=== PATIENT | female | born 1955 | race American Indian/Alaskan Native ===

== ENCOUNTER 2016-05-31 19:17 | Emergency (ER) | payer SELFPAY ==
[2016-05-31] MEDS ORDERED: TYLENOL ONE (19:58)
[2016-05-31] MEDS ORDERED: CATAPRES ONE (19:59)
[2016-05-31] MEDS ORDERED: TYLENOL PO ONE (20:03)
[2016-05-31] MEDS ORDERED: CATAPRES PO ONE (20:03)
--- NOTE | 2016-06-01 00:10 | Emergency Department Report ---
ED ENT HPI - General Chief complaint: Dental/Oral Stated complaint: TOOTH PAIN/SWELLING,JURADO Time Seen by Provider: 06/01/16 00:08 Source: patient Mode of arrival: Ambulatory Limitations: No Limitations - History of Present Illness Initial comments: 60-year-old female presents to emergency room with toothache. Patient has history of chronic tooth disease and multiple missing teeth. Significant complaining of worsening of her right lower 1st premolar tooth which is partially broken for many years now causing her to pain and swelling of her gum area. Patient denies any fever or difficulty swallowing. MD complaint: tooth pain -: Gradual, year(s) (worst today) Severity: moderate Severity scale (0 -10): 4 Quality: aching, dull Consistency: constant Improves with: none Worsens with: other (chewing) Context- Dental: history of dental caries, poor dental care Associated Symptoms: gum swelling (right lower premolar). denies: fever, cough - Related Data Previous Rx's Medication Instructions Recorded Last Taken Type Amoxicillin 500 mg PO TID #30 tab 06/01/16 Unknown Rx Diclofenac Sodium 75 mg PO BID #20 tablet. 06/01/16 Unknown Rx traMADol [Ultram] 50 mg PO Q6HR PRN #15 tablet 06/01/16 Unknown Rx Allergies Allergy/AdvReac Type Severity Reaction Status Date / Time codeine Allergy Itching Verified 05/31/16 19:54 ED Dental HPI - General Chief complaint: Dental/Oral Stated complaint: TOOTH PAIN/SWELLING,JURADO Time Seen by Provider: 06/01/16 00:08 Source: patient Mode of arrival: Ambulatory Limitations: No Limitations - Related Data Previous Rx's Medication Instructions Recorded Last Taken Type Amoxicillin 500 mg PO TID #30 tab 06/01/16 Unknown Rx Diclofenac Sodium 75 mg PO BID #20 tablet. 06/01/16 Unknown Rx traMADol [Ultram] 50 mg PO Q6HR PRN #15 tablet 06/01/16 Unknown Rx Allergies Allergy/AdvReac Type Severity Reaction Status Date / Time codeine Allergy Itching Verified 05/31/16 19:54 ED Review of Systems ROS: Stated complaint: TOOTH PAIN/SWELLING,JURADO Other details as noted in HPI Comment: All other systems reviewed and negative Constitutional: denies: chills, fever Eyes: denies: eye pain, eye discharge, vision change ENT: dental pain. denies: ear pain, throat pain Respiratory: denies: cough, shortness of breath, wheezing Cardiovascular: denies: chest pain, palpitations Endocrine: no symptoms reported Gastrointestinal: denies: abdominal pain, nausea, diarrhea Genitourinary: denies: urgency, dysuria, discharge Musculoskeletal: denies: back pain, joint swelling, arthralgia Skin: denies: rash, lesions Neurological: denies: headache, weakness, paresthesias Psychiatric: denies: anxiety, depression Hematological/Lymphatic: denies: easy bleeding, easy bruising ED Past Medical Hx - Past Medical History Previous Medical History?: No - Surgical History Past Surgical History?: Yes Additional Surgical History: abdominal exploratory surgeryc section x 2 - Social History Smoking Status: Current Every Day Smoker Substance Use Type: Alcohol, Non Opiate Pain - Medications Home Medications: Home Medications Medication Instructions Recorded Confirmed Last Taken Type Amoxicillin 500 mg PO TID #30 tab 06/01/16 Unknown Rx Diclofenac Sodium 75 mg PO BID #20 tablet. 06/01/16 Unknown Rx traMADol [Ultram] 50 mg PO Q6HR PRN #15 tablet 06/01/16 Unknown Rx ED Physical Exam - General Limitations: No Limitations General appearance: alert, in no apparent distress - Head Head exam: Present: atraumatic, normocephalic - Eye Eye exam: Present: normal appearance - ENT ENT exam: Present: mucous membranes moist - Expanded ENT Exam Expanded Ear exam: Present: normal external inspection Teeth exam: Present: dental caries, fractured tooth # (6), dental tenderness # - Neck Neck exam: Present: normal inspection - Respiratory Respiratory exam: Present: normal lung sounds bilaterally. Absent: respiratory distress - Cardiovascular Cardiovascular Exam: Present: regular rate, normal rhythm. Absent: systolic murmur, diastolic murmur, rubs, gallop - GI/Abdominal GI/Abdominal exam: Present: soft, normal bowel sounds - Extremities Exam Extremities exam: Present: normal inspection - Back Exam Back exam: Present: normal inspection - Neurological Exam Neurological exam: Present: alert, oriented X3 - Psychiatric Psychiatric exam: Present: normal affect, normal mood - Skin Skin exam: Present: warm, dry, intact, normal color. Absent: rash ED Course Vital Signs 05/31/16 05/31/16 19:54 20:05 Temperature 99.1 F Pulse Rate 96 H 96 H Respiratory 20 Rate Blood Pressure 222/111 222/111 Blood Pressure 222/111 [Right] O2 Sat by Pulse 100 Oximetry - Reevaluation(s) Reevaluation #1: Patient feels better after receiving dose of Percocet and amoxicillin emergency room. VITAL SIGNS improved. 06/01/16 00:52 Critical care attestation.: If time is entered above; I have spent that time in minutes in the direct care of this critically ill patient, excluding procedure time. ED Disposition Clinical Impression: Abscess, dental, Pain due to dental caries Disposition: DISCHARGED TO HOME OR SELFCARE Is pt being admited?: No Does the pt Need Aspirin: No Condition: Good Instructions: Dental Abscess (ED), Dental Caries (ED) Prescriptions: Amoxicillin 500 mg PO TID #30 tab Diclofenac Sodium 75 mg PO BID #20 tablet. traMADol [Ultram] 50 mg PO Q6HR PRN #15 tablet PRN Reason: Pain Referrals: PRIMARY CARE, [Primary Care Provider] - 3-5 Days
[2016-06-01] MEDS ORDERED: TRIMOX PO ONE (00:13)
[2016-06-01] MEDS ORDERED: PERCOCET 5/325 PO ONE (00:13)
[2016-06-01 01:10] VITALS: BP 146/80
== END 2016-06-01 01:20 | disposition home or self-care (01) ==
LOC: ED 19:17
DX: K04.7 Periapical abscess without sinus (principal); K02.9 Dental caries, unspecified; F17.200 Nicotine dependence, unspecified, uncomplicated
CPT/HCPCS: 99282